=== PATIENT | female | born 1945 | race Caucasian/White ===

== ENCOUNTER 2017-12-06 01:29 | Observation (INO) | payer MEDICARE, OTHER ==
--- NOTE | 2017-12-02 18:42 | HISTORY AND PHYSICAL ---
DATE OF ADMISSION: December 06, 2017 IDENTIFICATION AND CHIEF COMPLAINT Francia is a 72-year-old woman with the chief complaint of left knee pain. HISTORY OF PRESENT ILLNESS The patient has a longstanding history of knee arthritis, progressively painful and debilitating, refractory to conservative care. Surgery is indicated to relieve symptoms failure of nonoperative measures. PAST MEDICAL HISTORY 1. Most notable for metastatic cancer, currently controlled with medication. 2. Hypertension, controlled on medication. ALLERGIES She has no known drug allergies. CURRENT MEDICATIONS 1. Amlodipine 10 mg p.o. q. day. 2. Letrozole 2.5 mg p.o. q. day. 3. Gabapentin 100 mg two tabs b.i.d. 4. Various vitamins. PAST SURGICAL HISTORY 1. Contralateral knee replacement. 2. Rotator cuff surgery. 3. Carpal tunnel release. 4. Bunion operation. FAMILY HISTORY Notable for mother and sister with cancer. SOCIAL HISTORY Negative for tobacco and alcohol use. REVIEW OF SYSTEMS Negative. PHYSICAL EXAMINATION GENERAL: This is a well-developed, well-nourished female who appears stated age. HEENT: Normocephalic, atraumatic. NECK: Supple. LUNGS: Clear. HEART: Regular. ABDOMEN: Soft. ORTHOPEDIC: Left knee has a valgus deformity. This is passively correctable. She has an effusion present. Extensor function is intact. The knee is grossly stable. The MCL is competent. Calves nontender. Neurovascular function intact distally. Radiographs demonstrate end-stage DJD, most severely affecting the lateral compartment. ASSESSMENT Left knee end-stage degenerative joint disease, refractory to conservative care. PLAN Per patient request, we are going to proceed with total knee replacement. The nature of the procedure, risks, benefits, and anticipated rehab course reviewed. Signed consent is in the chart. The risks of the procedure include, but are not limited to , major medical or anesthetic complication, infection, neurovascular injury, blood transfusion, stiffness, scarring, fracture, tendon rupture, instability, implant loosening and migration, failure , persistent or recurrent pain, need for additional surgery, and other unforeseen. She understands and wishes to proceed. Signed permit was placed in the chart. No guarantee was given or implied. ESVIN
[2017-12-05 14:37] LABS: PLATELET COUNT, AUTOMATED 585 K/uL (150-450)
[2017-12-05 14:45] LABS: INR 1.01
[~2017-12-06] VITALS: Ht 144.8 cm; Wt 53.3 kg
[2017-12-06] VITALS (14 sets, daily range): BP systolic 119–157; BP diastolic 71–113
[~2017-12-06 01:29] MED LIST: ACE325 PO; AMLO-98 PO; CEFZIL; CYCL10TA29 PO; CYCL1DRO6 OP; ENO40I SQ; HYDR-2966 PO; LETPT PO; LOR10/325 PO; LOR5/325 PO; LORA-1456 PO; MECL12.5 PO; ONDA4TAB PO; PROC10TA4 PO; SIMV-44 PO
[2017-12-06] MEDS ORDERED: fentaNYL CITR 100 MCG/2 ML AMP ONE ×3 (09:52→14:24)
[2017-12-06] MEDS ORDERED: PROPOFOL EMUL(*) 10MG/ML 20 ML 20 ML ONE ×4 (09:53→12:45)
[2017-12-06] MEDS ORDERED: ONDANSETRON 4 MG/2 ML VIAL ONE (09:53)
[2017-12-06] MEDS ORDERED: LIDOCAINE MPF 1% 5 ML VIAL ONE (09:53)
[2017-12-06] MEDS ORDERED: DEXAMETHASONE SOD 4 MG/ML VIAL ONE (09:53)
[2017-12-06] MEDS ORDERED: LIDOCAINE/SOD BICARB 8.4% SYR ID ONE (10:45)
[2017-12-06] MEDS ORDERED: TRANEXAMIC AC 1000 MG/10ML SDV 1,000 MG in DEXTROSE 5% 50 ML BAG 50 ML IV ONE (10:45)
[2017-12-06] MEDS ORDERED: ceFAZolin(*) 1 GM VIAL 1 GM in NS(*) 0.9% 100 ML ADDVANT BAG 100 ML IVPB ONE (10:45)
[2017-12-06] MEDS ORDERED: cloNIDine EPIDUR INJ 100MCG/ML 40 MCG, ROPIVACAINE 0.5% 20 ML VIAL 25 ML, EPINEPHrine H... INJ ONE (10:45)
[2017-12-06] MEDS ORDERED: MIDAZOLAM 2 MG/2 ML VIAL IVP ONE (10:45)
[2017-12-06] MEDS ORDERED: NORMOSOL R SOLN(*) 1000 ML BAG 1,000 ML IV PRN ×2 (10:45→13:50)
[2017-12-06] MEDS ORDERED: FAMOTIDINE 20 MG TAB PO ONE (10:45)
[2017-12-06] MEDS ORDERED: HALOPERIDOL LACT 5 MG/ML VIAL IM ONE (11:17)
[2017-12-06] MEDS ORDERED: ROCURONIUM BROM 10 MG/ML 5 ML ONE (11:30)
[2017-12-06] MEDS ORDERED: ACETAMINOPHEN(*)1000 MG/100 ML 100 ML IVPB ONE (11:59)
[2017-12-06] MEDS ORDERED: SUGAMMADEX SOD 200 MG/2 ML SDV ONE (12:15)
[2017-12-06] MEDS ORDERED: APAP/HYDROCODONE 325/7.5 TAB PO PRN (13:50)
[2017-12-06] MEDS ORDERED: PROMETHAZINE 25 MG/ML 1 ML AMP IVP PRN (13:50)
[2017-12-06] MEDS ORDERED: diphenhydrAMINE 25 MG CAP PO PRN (13:50)
[2017-12-06] MEDS ORDERED: FLUSH 10 ML SYR IVP PRN (13:50)
[2017-12-06] MEDS ORDERED: ZOLPIDEM TARTRATE 5 MG TAB PO PRN (13:50)
[2017-12-06] MEDS ORDERED: BENZOCAINE/MENTHOL 1 EACH LOZG PO PRN (13:50)
[2017-12-06] MEDS ORDERED: BISACODYL 10 MG SUPP PR PRN (13:50)
[2017-12-06] MEDS ORDERED: diphenhydrAMINE 50 MG/ML VIAL IVP PRN (13:50)
[2017-12-06] MEDS ORDERED: MAGNESIUM HYDROXIDE* 30ML UDCP PO PRN (13:50)
[2017-12-06] MEDS ORDERED: MEPERIDINE 50 MG/ML SYR ONE (13:53)
--- NOTE | 2017-12-06 14:17 | RADIOLOGY IMAGING REPORT ---
FACILITY: [facility] PATIENT NAME: Analia Barbour : 1945 MR: [id number] V: [id number] EXAM DATE: ORDERING PHYSICIAN: CHULA GARCIAS TECHNOLOGIST: Location: [facility] - [place] Patient: Analia Barbour : 1945 Visit/Account:[id number] Date of Sevice: 12/06/2017 EXAMINATION: Left knee radiographs 3 views HISTORY: Postoperative COMPARISON: None. FINDINGS: 2 views obtained. Bones: No fracture or osseous destruction. Joint spaces: Total knee arthroplasty in near anatomic alignment.Postoperative change along the post erior patella. There is a lucent area within the distal femur seen on the lateral view with linear ma rgins which appears to be postoperative or may alternatively be a part of the prosthesis. In the wendie on of this lucency on the lateral view there is an apparent 1.3 cm discontinuous bony fragment which is not seen on the frontal view. Alignment: Normal. Soft tissues: Skin staple line and postoperative soft tissue gas noted. Postoperative gas noted in t he knee joint space. Effusion: None. IMPRESSION: Total knee arthroplasty in near-anatomic alignment. Lucency with linear morphology in the distal femur on lateral view which appears to represent either a postsurgical defect or a lucent component of the arthroplasty. There is an apparent 1.3 cm disconti nuous bony fragment in the region of this lucency seen on the lateral view only in keeping with a fra cture fragment or displaced osseous fragment related to potential osteotomy. CT could be utilized for further evaluation as needed. Report Dictated By: Fred Greenfield MD at 12/06/2017 2:00 PM Report E-Signed By: Fred Greenfield MD at 12/06/2017 2:12 PM WSN:[id number]
[2017-12-06] MEDS: CELECOXIB 200 MG CAP PO SCH (16:54)
--- NOTE | 2017-12-06 17:00 | Hospitalist Consultation ---
History of Present Illness Requesting Physician Chula Garcias MD Reason for Consult Post-op medical management Chief Complaint L-knee pain History of Present Illness Mrs. Barbour is a 72-year-old woman with PMH of HTN, Leukemia/Bone Marrow Cancer and she takes Femara 2.5mg po qhs. The patient also has a longstanding history of knee arthritis, progressively painful and debilitating, refractory to conservative care. Surgery is indicated to relieve symptoms failure of nonoperative measures. Her past surgeries are R- knee replacement, Rotator cuff surgery, Carpal tunnel release, Bunion operation. I was asked by Dr Garcias to evaluate this patient for her medical management during her hospital stay. Post- op she complaints of left knee pain. History Home Meds Reported Medications Prochlorperazine Maleate (Compazine) 10 Mg Tablet, 1 TAB PO PRN 11/30/17 Ondansetron (ZOFRAN ODT) 4 Mg Tab.rapdis, 8 MG PO PRN, TAB.MARAL 11/30/17 Meclizine Hcl (MECLIZINE HCL) 12.5 Mg Tablet, 12.5 MG PO PRN Y for DIZZINESS 11/30/17 Letrozole (FEMARA) 2.5 Mg Tab, 2.5 MG PO HS, TAB 11/30/17 Hydrochlorothiazide (HYDROCHLOROTHIAZIDE) 25 Mg Tablet, 0.5 TAB PO PRN, TAB 11/30/17 Cyclosporine (RESTASIS) 1 Each Droperette, 1 EACH OP QDAY 11/30/17 Cyclobenzaprine Hcl (CYCLOBENZAPRINE HCL) 10 Mg Tablet, 5 MG PO PRN, #9 TAB 11/30/17 Acetaminophen (Tylenol) 325 Mg Tab, 650 MG PO Q4-6H, 0 Refills TAKE NEEDED FOR PAIN 01/07/10 Amlodipine Besylate (Amlodipine Besylate) 10 Mg Tablet, 10 MG PO HS, 0 Refills 01/07/10 Discontinued Reported Medications Lorazepam (ATIVAN) 1 Mg Tablet, 1 MG PO PRN 11/30/17 Acetaminophen/Hydrocodone (Lortab 5/325 Mg) 5 Mg/325 Mg Tab, 2 TAB PO Q4-6H, 0 Refills TAKE NEEDED FOR PAIN 01/07/10 Enoxaparin Sodium (Lovenox) 40 Mg/0.4 Ml Syr, 40 MG SQ QDAY for 14 Days, 0 Refills 01/07/10 Simvastatin (Zocor) 40 Mg Tablet, 40 MG PO QHS, 0 Refills 12/29/09 Allergies: Coded Allergies: dexamethasone (Verified Allergy, Intermediate, MENTAL STATUS CHANGES, 11/30) Patient History: Angina FATHER FH: cancer MOTHER BROTHER OR SISTER Hx Smoking: No Smoking Status: Never Smoker Caffeine Intake: Coffee Caffeine/Cups Per Day: 2 cups Hx Alcohol Use: No Hx Substance Use Disorder: No History of IV Drug Use: No Review of Systems Constitutional: No Fever, No Weight Loss, No Weight Gain, No Chills Neurological: No Confusion, No Weakness, No Dizziness Cardiovascular: No Chest Pain, No Palpitations Respiratory: No Shortness of Breath, No Cough, No Wheezing Gastrointestinal: No Nausea, No Vomiting, No Diarrhea, No Constipation, No Abdominal Pain Genitourinary: No Dysuria, No Hematuria Musculoskeletal: Pain, Impaired Mobility, No Sprain, No Strain Psychiatric: No Depression, No Anxiety Exam Vital Signs Vital Signs Date Time Temp Pulse Resp B/P (MAP) Pulse Ox O2 Delivery O2 Flow Rate FiO2 12/06/17 15:23 92 Nasal Cannula 2.0 12/06/17 15:23 98.2 78 12 139/74 (95) General Appearance: Alert, Awake, No Acute Distress, Afebrile Neuro: No Gross deficits Eyes: PERRLA Cardiovascular: Normal Rhythm & Peripheral Pulses Respiratory: No Respiratory Distress, Clear to Auscultation GI: Abd Soft and Non-Tender Extremities: Soft and Non Tender, Edema (tender L-knee) Psych: Alert & Oriented X3, Appropriate Mood & Affect Medical Decision Making Data Points Result Diagram: 12/05/17 9453 Assessment and Plan Problems: (1) Total knee replacement status Status: Acute Assessment & Plan: She is currently on Aspirin 325mg po qd for DVT prophylaxis. ROM, PT and other management as per surgery (2) Leukemia Status: Chronic Assessment & Plan: I will start her on Femara 2.5mg po at hs, She will bring her own meds (3) Hypertension Status: Chronic Assessment & Plan: I will start her on Amlodipine 10mg po q hs and hold if SBP < 100 Condition stable Time Spent on Plan of Care: < 30 min Copies to: CHULA GARCIAS MD Venous Thromboembolism VTE Risk Physician Assess for VTE Risk: Yes Patient's VTE Risk: Low VTE Diagnostic Test 2 Days Prior to Admit: No Antithrombotics Is Pt On Any Antithrombotics?: No Exam Sepsis Risk: No Definite Risk Problem Qualifiers (1) Total knee replacement status: Laterality: left Qualified Codes: Z96.652 - Presence of left artificial knee joint (2) Hypertension: Hypertension type: essential hypertension Qualified Codes: I10 - Essential ( primary) hypertension GILES SANCHEZ MD Dec 06, 2017 17:00
[2017-12-06] MEDS: LETROZOLE 2.5 MG TAB PO SCH (19:43)
[2017-12-06] MEDS: amLODIPine BESYL(*) 5 MG TAB PO SCH (19:47)
[2017-12-06] MEDS: ceFAZolin(*) 1 GM VIAL 1 GM in NS(*) 0.9% 100 ML ADDVANT BAG 100 ML IVPB SCH (19:48)
[2017-12-06] MEDS: ACETAMINOPHEN 325 MG TAB PO PRN (20:57)
[2017-12-06] MEDS ORDERED: PATIENT'S OWN MED PO SCH (21:00)
--- NOTE | 2017-12-06 22:06 | OPERATIVE REPORT 1 ---
EVENT DATE: December 06, 2017 SURGEON: Saw Soliz MD ANESTHESIOLOGIST: Oneil Watson MD ANESTHESIA: General. HAND MEAT SALTER: Homero Munoz PA-C PREOPERATIVE DIAGNOSIS Left knee degenerative joint disease. POSTOPERATIVE DIAGNOSIS Left knee degenerative joint disease. PROCEDURE PERFORMED Left total knee arthroplasty. ESTIMATED BLOOD LOSS Minimal. DRAINS None. SPECIMENS None. COMPLICATIONS None apparent. TOURNIQUET TIME 46 minutes IMPLANTS USED [employer] Triathlon knee system with 2 left PS femur, 2 standard tibial baseplate , 29 mm universal cemented, all-polyethylene patellar button, and a 9 mm PS tibial tray liner. INDICATIONS Francia has intractable pain and disability related to end-stage knee arthritis. Surgery is indicated to relieve symptoms after failure of nonoperative measures. DESCRIPTION OF PROCEDURE The patient was taken to the operating room and placed supine on the operating table. General anesthesia was induced after a failed spinal. Antibiotics and TXA were administered IV. The left lower extremity was prepped and draped in the usual sterile fashion for knee arthroplasty. The limb was exsanguinated with an Esmarch bandage. The tourniquet was inflated to 250 mmHg. A midline longitudinal incision was made and carried down through the skin and subcutaneous tissue to the extensor mechanism. Full-thickness flaps were developed far enough medially to allow medial parapatellar arthrotomy be performed. The patella was everted, and the knee was put into the flexed position. The fat pad, anterior horn, the menisci, and the cruciate ligaments were debrided. A subperiosteal capsule release was performed 1 cm circumferentially around the upper tibial plateau to balance the knee. A step drill was used to enter the distal femur. A 10 cm alignment guide was used to engage the isthmus. The cut was set for 6 degrees of valgus. A 10 mm resection block was applied. Distal femoral cuts were made with an oscillating saw. AP sizing guide was applied. This was positioned parallel to the transepicondylar axis as she does have some lateral hypoplasia of the condyle. The size 2 was optimal without risk of notching. The four-in-one cutting block was applied. Anterior, posterior, posterior chamfer, and anterior chamfer cuts were made respectively. The PS block was applied and centered. Medial and lateral bone was removed through the blocks. The trial femur had nice line-to- line fit. Attention was turned to tibial preparation. The extramedullary guide was applied and positioned for varus, valgus, posterior slope, and rotation. The knee block was set to take 2 mm from the relatively deficit lateral tibial plateau. The block was pinned, extramedullary alignment check was made, and the cuts were made with an oscillating saw. After osteophyte removal, gaps were balanced and symmetric with no additional formal releases required. A size 2 tibial baseplate provided good coverage. This was inserted along with a trial liner and the trial femur. The knee was brought to full extension. The patella was taken from a starting thickness of 19 mm to a residual of 13 to 14 with a patellar clamp and oscillating saw. The 29 provided optimal bony coverage without soft tissue overhang. Lug holes were drilled, and the patella tracked nicely with the no-touch technique. Final tibial preparation consisted of assuring appropriate rotational and translational position of the component. The boss was reamed. The fin was punched. The surfaces were copiously lavaged. The components were cemented in a single stage. Once the cement had fully polymerized, the tourniquet was deflated. Hemostasis was assured. The wound was copiously lavaged. The 9 PS tibial tray liner filled up the gap ideally. This was inserted and locked into the baseplate. The joint was reduced. The arthrotomy was closed in flexion with #2 Ethibond, the subcutaneous tissue with 3-0 Vicryl, and the skin with surgical carol. Xeroform and 4 x 4's applied as a dry, sterile dressing and a compression wrap. The patient was awakened from anesthesia and taken to recovery in stable condition having tolerated the procedure well. PLAN The plan is for standard TKA rehab protocol. [facility]
[2017-12-07 03:42] VITALS: BP 146/87
[2017-12-07] MEDS: ACETAMINOPHEN 325 MG TAB PO PRN ×3 (03:51→20:22)
[2017-12-07] MEDS: ceFAZolin(*) 1 GM VIAL 1 GM in NS(*) 0.9% 100 ML ADDVANT BAG 100 ML IVPB SCH ×2 (03:52→11:32)
[2017-12-07] MEDS: DIAZEPAM 5 MG TAB PO PRN ×2 (04:45→20:21)
[2017-12-07 05:39] LABS: PLATELET COUNT, AUTOMATED 453 K/uL (150-450)
[2017-12-07] MEDS: CELECOXIB 200 MG CAP PO SCH ×2 (08:30→16:30)
[2017-12-07] MEDS: FERROUS SULFATE 325 MG TAB PO SCH ×2 (08:30→16:30)
[2017-12-07] MEDS: ASPIRIN 325 MG TAB PO SCH (08:30)
[2017-12-07 08:33] VITALS: BP 140/78
--- NOTE | 2017-12-07 10:06 | Hospitalist Progress Note ---
Subjective Progress Notes Subjective Mrs. Barbour is a 72-year-old woman with PMH of HTN, Leukemia/Bone Marrow Cancer and she takes Femara 2.5mg po qhs. The patient also has a longstanding history of knee arthritis, progressively painful and debilitating, refractory to conservative care. Surgery is indicated to relieve symptoms failure of nonoperative measures. Her past surgeries are R- knee replacement, Rotator cuff surgery, Carpal tunnel release, Bunion operation. I was asked by Dr Garcias to evaluate this patient for her medical management during her hospital stay. Post- op she complaints of left knee pain. 12/07: She is afebrile and hemodynamically stable and without complaint. Her Hb has dropped some to 8.9gm. Patient Complains of: Neurological: No: Confusion, Weakness, Dizziness Cardiovascular: No: Chest Pain, Palpitations Respiratory: No: Cough, Congestion, Shortness of Breath Gastrointestinal: No Nausea, No Vomiting Genitourinary: No Dysuria, No Hematuria Musculoskeletal: Pain, Impaired Mobility, No: Sprain, Strain Physical Exam Vital Signs Date Time Temp Pulse Resp B/P (MAP) Pulse Ox O2 Delivery O2 Flow Rate FiO2 12/07/17 08:33 98.4 18 140/78 (98) 97 Nasal Cannula 1.0 12/07/17 03:42 81 General Appearance: Alert, Awake, No Acute Distress, Afebrile Neuro: No Gross deficits Eyes: PERRLA ENT: Normal Cardiovascular: No Edema, No JVD Respiratory: No Respiratory Distress GI: Soft and Non-Tender Extremities: Soft and Non Tender (Tender L-knee) Psych: Alert & Oriented X3, Appropriate Mood & Affect Result Diagram: 12/07/1752612/07/17526 Assessment and Plan Problems: (1) Total knee replacement status Status: Acute Assessment & Plan: She is currently on Aspirin 325mg po qd for DVT prophylaxis. ROM, PT and other management as per surgery 12/07: Management as per surgery (2) Leukemia Status: Chronic Assessment & Plan: I will start her on Femara 2.5mg po at hs, She will bring her own meds 12/07: Her Hb is 8.9 and her MCV and MCH are low. I will start her on FeSO4 325mg po bid and continue her other meds. (3) Hypertension Status: Chronic Assessment & Plan: I will start her on Amlodipine 10mg po q hs and hold if SBP < 100 12/07: BP is 146/87 with mild pain. I will continue her current meds. If her BP remains elevated I would change her Amlodipine to Nifedipine XL 30mg po qd Condition stable Time Spent on Plan of Care: < 30 min Copies to: CHULA GARCIAS MD Exam Sepsis Risk: No Definite Risk Problem Qualifiers (1) Total knee replacement status: Laterality: left Qualified Codes: Z96.652 - Presence of left artificial knee joint (2) Hypertension: Hypertension type: essential hypertension Qualified Codes: I10 - Essential ( primary) hypertension GILES SANCHEZ MD Dec 07, 2017 10:06
[2017-12-07 10:56] VITALS: BP 151/76
[2017-12-07 13:00] VITALS: Ht 144.8 cm; Wt 53.3 kg
[2017-12-07 15:06] VITALS: BP 150/80
[2017-12-07 20:00] VITALS: BP 153/78
[2017-12-07] MEDS: amLODIPine BESYL(*) 5 MG TAB PO SCH (20:21)
[2017-12-07] MEDS: LETROZOLE 2.5 MG TAB PO SCH (20:23)
[2017-12-07 23:25] VITALS: BP 162/81
[2017-12-08 03:00] VITALS: BP 149/81
[2017-12-08 05:51] LABS: PLATELET COUNT, AUTOMATED 436 K/uL (150-450)
[2017-12-08 07:43] VITALS: BP 136/80
[2017-12-08] MEDS: ASPIRIN 325 MG TAB PO SCH (08:13)
[2017-12-08] MEDS: FERROUS SULFATE 325 MG TAB PO SCH ×2 (08:14→17:24)
[2017-12-08] MEDS: CELECOXIB 200 MG CAP PO SCH ×2 (08:14→17:24)
--- NOTE | 2017-12-08 10:18 | Hospitalist Progress Note ---
Subjective Progress Notes Subjective She has no complaints this morning. Patient Complains of: Cardiovascular: No: Chest Pain Respiratory: No: Shortness of Breath Physical Exam Vital Signs Date Time Temp Pulse Resp B/P (MAP) Pulse Ox O2 Delivery O2 Flow Rate FiO2 12/08/17 07:43 98.8 85 16 136/80 (98) 96 Room Air 12/07/17 10:56 1.0 Intake and Output 12/09/17 07:00 # Voids 1 # Bowel Movements 1 General Appearance: Alert, Awake, No Acute Distress, Afebrile Cardiovascular: Regular Rate and Rhythm Respiratory: No Respiratory Distress, Clear to Auscultation Psych: Alert & Oriented X3, Appropriate Mood & Affect Result Diagram: 12/08/17 0512/07/17526 Assessment and Plan Problems: (1) Total knee replacement status Status: Acute Assessment & Plan: She is currently on Aspirin 325mg daily for DVT prophylaxis. ROM, PT and other management as per surgery. (2) Leukemia Status: Chronic Assessment & Plan: She is on chronic treatment with Femara. She will use her own medications. She was started on Ferrous Sulfate secondary to low Hgb. Hgb today is 9.4. CBC to be rechecked tomorrow. (3) Hypertension Status: Chronic Assessment & Plan: She is on chronic treatment with Amlodipine. This will be started with hold parameters. Exam Sepsis Risk: No Definite Risk Problem Qualifiers (1) Total knee replacement status: Laterality: left Qualified Codes: Z96.652 - Presence of left artificial knee joint (2) Hypertension: Hypertension type: essential hypertension Qualified Codes: I10 - Essential ( primary) hypertension DILLON HERNANDEZ WIRE SPOOLER Dec 08, 2017 10:18
[2017-12-08 11:24] VITALS: BP 160/88
[2017-12-08 15:34] VITALS: BP 148/84
[2017-12-08 19:25] VITALS: BP 133/70
[2017-12-08] MEDS: ACETAMINOPHEN 325 MG TAB PO PRN (20:47)
[2017-12-08] MEDS: DIAZEPAM 5 MG TAB PO PRN (20:47)
[2017-12-08 20:49] VITALS: BP 147/95
[2017-12-08] MEDS: amLODIPine BESYL(*) 5 MG TAB PO SCH (20:50)
[2017-12-08] MEDS: LETROZOLE 2.5 MG TAB PO SCH (20:50)
[2017-12-09 01:05] VITALS: BP 143/64
[2017-12-09 05:40] LABS: PLATELET COUNT, AUTOMATED 422 K/uL (150-450)
[2017-12-09 05:58] VITALS: BP 148/80
[2017-12-09 07:41] VITALS: BP 124/86
[2017-12-09] MEDS: FERROUS SULFATE 325 MG TAB PO SCH (08:55)
[2017-12-09] MEDS: ASPIRIN 325 MG TAB PO SCH (08:55)
[2017-12-09] MEDS: CELECOXIB 200 MG CAP PO SCH (08:55)
[2017-12-09] MEDS: ACETAMINOPHEN 325 MG TAB PO PRN (09:13)
[2017-12-09] MEDS ORDERED: HYDR-4308 PO (09:35)
[2017-12-09] MEDS ORDERED: ASPI-764 PO (09:35)
[2017-12-09] MEDS ORDERED: DIA5 PO (09:42)
[2017-12-09] MEDS ORDERED: FERR-53 PO (12:28)
--- NOTE | 2017-12-09 13:06 | Hospitalist Progress Note ---
Subjective Progress Notes Subjective Mrs. Barbour is a 72-year-old woman with PMH of HTN, Leukemia/Bone Marrow Cancer and she takes Femara 2.5mg po qhs. The patient also has a longstanding history of knee arthritis, progressively painful and debilitating, refractory to conservative care. Surgery is indicated to relieve symptoms failure of nonoperative measures. Her past surgeries are R- knee replacement, Rotator cuff surgery, Carpal tunnel release, Bunion operation. I was asked by Dr Garcias to evaluate this patient for her medical management during her hospital stay. Post- op she complaints of left knee pain. 12/07: She is afebrile and hemodynamically stable and without complaint. Her Hb has dropped some to 8.9gm. 12/09: She is afebrile and hemodynamically stable without any complaint. She is being d /c'd home today and I will send her on FeSO4 325mg po bid for her anemia Patient Complains of: Neurological: No: Confusion, Weakness, Dizziness Cardiovascular: No: Chest Pain, Palpitations Respiratory: No: Cough, Congestion, Shortness of Breath Gastrointestinal: No Nausea, No Vomiting Genitourinary: No Dysuria, No Hematuria Musculoskeletal: Pain, Impaired Mobility, No: Sprain, Strain Physical Exam Vital Signs Date Time Temp Pulse Resp B/P (MAP) Pulse Ox O2 Delivery O2 Flow Rate FiO2 12/09/17 07:45 92 12/09/17 07:45 Room Air 12/09/17 07:41 98.0 92 12 124/86 (99) 12/07/17 10:56 1.0 Intake and Output 12/10/17 07:00 Intake Total 360 ml Balance 360 ml Intake Oral 360 ml # Voids 1 General Appearance: Alert, Awake, No Acute Distress, Afebrile Neuro: No Gross deficits Eyes: PERRLA Cardiovascular: Regular Rate and Rhythm, No Edema Respiratory: No Respiratory Distress GI: Soft and Non-Tender Extremities: Soft and Non Tender (tender L-knee) Psych: Alert & Oriented X3, Appropriate Mood & Affect Result Diagram: 12/09/17 0521 12/07/17 05 Assessment and Plan Problems: (1) Total knee replacement status Status: Acute Assessment & Plan: She is currently on Aspirin 325mg daily for DVT prophylaxis. ROM, PT and other management as per surgery. 12/09: She will be d/c'd on Aspirin 325mg po qd. She will be d/c on FeSO4 325mg po bid for her anemia She will follow Dr. Garcias. (2) Leukemia Status: Chronic Assessment & Plan: She is on chronic treatment with Femara. She will use her own medications. She was started on Ferrous Sulfate secondary to low Hgb. Hgb today is 9.4. CBC to be rechecked tomorrow. 12/09: Her Hb is 9.0 and she will be d/c on FeSO4 325mg po bid (3) Hypertension Status: Chronic Assessment & Plan: She is on chronic treatment with Amlodipine. This will be started with hold parameters. Condition stable Time Spent on Plan of Care: < 30 min Copies to: CHULA GARCIAS MD Exam Sepsis Risk: No Definite Risk Problem Qualifiers (1) Total knee replacement status: Laterality: left Qualified Codes: Z96.652 - Presence of left artificial knee joint (2) Hypertension: Hypertension type: essential hypertension Qualified Codes: I10 - Essential ( primary) hypertension GILES SANCHEZ MD Dec 09, 2017 13:06
--- NOTE | 2017-12-20 15:17 | DISCHARGE SUMMARY ---
REASON FOR ADMISSION Patient with painful knee arthritis, admitted for knee replacement. HOSPITAL COURSE Patient taken to the operating room on the day of admission and undergoes uncomplicated left total knee arthroplasty. Postoperatively she is maintained on IV antibiotics for 24 hours. She has DVT prophylaxis with aspirin and ABIs. She is mobilized by Therapy and makes good progress. At the time of discharge her wound condition is benign. She is comfortable on p.o. pain medication. She is voiding and stooling normally. DISPOSITION Discharged home. FOLLOWUP With Dr. Soliz in one week. DISCHARGE MEDICATIONS 1. Include preop home meds at the usual dose. 2. Aspirin 325 p.o. q.day times one month. 3. Hydrocodone for pain. DIET Ad david. CONDITION ON DISCHARGE Stable. DISCHARGE INSTRUCTIONS CPM four hours a day. Increase motion as tolerated. Daily dry sterile dressing change. Okay to shower, no submersion of the wound. Call immediately for fever, chills, wound problems, uncontrolled pain or other concerns. ESVIN
== END 2017-12-09 09:47 | disposition home or self-care (01) ==
LOC: OR 01:29 → MED 15:15
PROVIDERS: ADMIT Orthopaedic Surgery; ATTEND Orthopaedic Surgery
DX: M17.12 Unilateral primary osteoarthritis, left knee (principal); Z79.899 Other long term (current) drug therapy; I12.9 Hypertensive chronic kidney disease with stage 1 through stage 4 chronic kidney disease, or unspecified chronic kidney disease; N18.9 Chronic kidney disease, unspecified
CPT/HCPCS: 27447; 36415; 73560; 85025; 85610; 86850; 86900; 86901; 97116; 97161; 97530; A9270; C1713; C1776; G0378; J0131; J0171; J0690; J0735; J1630; J1885; J2001; J2175; J2250; J2405; J2704; J2795; J3010; J7050; J7060; 82310; 82374; 82435; 82565; 82947; 84132; 84295; 84520; J1100

== ENCOUNTER 2018-02-15 00:53 | Inpatient (IN) | payer MEDICARE, OTHER ==
[~2018-02-15] VITALS: Ht 137.2 cm; Wt 53.3 kg
[2018-02-15] VITALS (10 sets, daily range): BP systolic 86–154; BP diastolic 58–91
[~2018-02-15 00:53] MED LIST changes: +ASPI-764 PO; +DIA5 PO; +FERR-53 PO; +HYDR-4308 PO
[2018-02-15] MEDS ORDERED: ceFAZolin(*) 2GM/D5W 50ML 50 ML IVPB ONE (06:00)
[2018-02-15] MEDS ORDERED: LIDOCAINE/SOD BICARB 8.4% SYR ID ONE (06:00)
[2018-02-15] MEDS ORDERED: MIDAZOLAM 2 MG/2 ML VIAL IVP PRN ×2 (06:00→10:45)
[2018-02-15] MEDS ORDERED: NORMOSOL R SOLN(*) 1000 ML BAG 1,000 ML IV PRN (06:00)
[2018-02-15] MEDS ORDERED: PREGABALIN 75 MG CAPSULE PO ONE (06:00)
[2018-02-15] MEDS ORDERED: ACETAMINOPHEN 500 MG TAB PO ONE (06:00)
[2018-02-15] MEDS ORDERED: CELECOXIB 200 MG CAP PO ONE (06:00)
[2018-02-15] MEDS ORDERED: FAMOTIDINE 20 MG TAB PO ONE (06:00)
[2018-02-15] MEDS ORDERED: PROPOFOL EMUL(*) 10MG/ML 20 ML 20 ML ONE (07:54)
[2018-02-15] MEDS ORDERED: DEXAMETHASONE SOD PHOS 10MG/ML ONE (07:54)
[2018-02-15] MEDS ORDERED: ONDANSETRON 4 MG/2 ML VIAL ONE (07:54)
[2018-02-15] MEDS ORDERED: MIDAZOLAM 2 MG/2 ML VIAL ONE (07:54)
[2018-02-15] MEDS ORDERED: fentaNYL CITR 100 MCG/2 ML AMP ONE ×3 (07:54→14:04)
[2018-02-15] MEDS ORDERED: ROCURONIUM BROM 10 MG/ML 10 ML ONE (07:54)
[2018-02-15] MEDS ORDERED: LIDOCAINE MPF 1% 5 ML VIAL ONE (07:54)
[2018-02-15] MEDS ORDERED: PROPOFOL EMUL(*) 10MG/ML 20 ML 60 ML ONE ×2 (09:27→11:30)
[2018-02-15] MEDS ORDERED: SUGAMMADEX SOD 500 MG/5 ML SDV ONE ×2 (13:01→14:48)
[2018-02-15] MEDS ORDERED: BENZOCAINE/MENTHOL 1 EACH LOZG PO PRN (13:25)
[2018-02-15] MEDS ORDERED: MAGNESIUM HYDROXIDE* 30ML UDCP PO PRN (13:25)
[2018-02-15] MEDS ORDERED: HYDROmorphone HCL 2 MG/ML SDV IVP PRN (13:25)
[2018-02-15] MEDS ORDERED: ACETAMINOPHEN(*)1000 MG/100 ML 100 ML IVPB PRN (13:25)
[2018-02-15] MEDS ORDERED: LR(*) 1000 ML BAG 1,000 ML IV PRN (13:25)
[2018-02-15] MEDS ORDERED: BISACODYL 10 MG SUPP PR PRN (13:25)
[2018-02-15] MEDS ORDERED: diphenhydrAMINE 25 MG CAP PO PRN (13:25)
[2018-02-15] MEDS ORDERED: FLUSH 10 ML SYR IVP PRN (13:25)
[2018-02-15] MEDS ORDERED: oxyCODONE HCL 5 MG CAP PO PRN (13:25)
[2018-02-15] MEDS ORDERED: MEPERIDINE 50 MG/ML SYR ONE (13:53)
--- NOTE | 2018-02-15 14:59 | OPERATIVE REPORT 1 ---
EVENT DATE: February 15, 2018 SURGEON: Orlando Gomez MD ANESTHESIOLOGIST: Wallace Swartz MD ANESTHESIA: General endotracheal. CHEMIST INTERNSHIP: Homero Munoz PA-C PREOPERATIVE DIAGNOSIS Lumbar spinal stenosis with L3-L4 disk herniation. POSTOPERATIVE DIAGNOSIS Lumbar spinal stenosis with L3-L4 disk herniation. PROCEDURE PERFORMED L3 to L5 laminectomy. IV FLUIDS 1900 mL. ESTIMATED BLOOD LOSS 125 mL. IMPLANTS None. SPECIMENS None. DRAINS None. COMPLICATIONS None. DISPOSITION Post anesthesia care unit. INDICATION FOR SURGERY Ms. Barbour is a 72-year-old female who presented to my clinic with a complaint of right greater than left radiating pain, numbness and tingling. This was accompanied by lower extremity weakness and heaviness with any attempts at prolonged ambulation. She had tried injections, medications, physical therapy, and activity modifications with no significant improvement. Her physical examination was significant for positive for straight leg raising maneuver on the right with symptoms radiating primarily in L4 distribution with that maneuver. Her imaging studies were significant for multilevel degenerative disk disease with severe spinal stenosis at L3-L4 and L4-L5 and moderate stenosis at L2-L3. There was also an inferiorly extruded right paracentral disk herniation sitting behind the L4 vertebral body. There was significant contact and compression of the neural elements noted. Secondary to ongoing symptoms and failure to improve with nonsurgical treatment, Ms. Barbour was offered and elected to undergo lumbar laminectomy. Prior to surgery, I explained in detail to the patient the possible risks of surgery. This included bleeding, infection, damage to the surrounding structures, nerve root damage, spinal fluid leak, meningitis, persistent and/ or worsening pain, , blindness, sexual dysfunction, autonomic nervous system dysfunction and other unforeseen medical and surgical complications. An understanding that spinal surgery is more effective at eliminating extremity discomfort than axial spine pain was stressed. DESCRIPTION OF PROCEDURE On the date of surgery, the patient was admitted to the preoperative hold area, and all questions were answered. The operative site was identified and marked by myself. The patient was brought in good condition to the operating room, and after succumbing to anesthesia, was placed in the prone position on a Aleksandar table. All bony protuberances and soft tissues were well padded in the standard fashion. Care was taken to maintain appropriate perfusion pressures during anesthesia. Preoperative antibiotics were administered according to the appropriate timing schedule. At the conclusion of the procedure, sponge and needle count were correct x two. Final time out was undertaken by members of the operating team. This confirmed correct patient, correct levels and correct surgery. The patient was then prepped and draped in the standard sterile orthopedic fashion, and an incision was made over the intended surgical levels. Sharp dissection was carried out down to the posterior elements. Soft tissues were elevated off the posterior elements in a subperiosteal manner. A lateral radiograph was obtained to confirm correct spinal levels. A Leksell rongeur and a [employer] bone cutter were used to remove the L3, the L4, and the bottom half of the L2 spinous processes. The lamina was then thinned down the midline with a high speed louise. The canal was entered by using a Kemp curette to undermine the inferior insertion of the ligamentum flavum on the L4 lamina. The Cedar elevator was used to separate any dural adhesions from surrounding bone and soft tissue prior to use of the Kerrison punch. A midline decompression was carried out using a #4 Kerrison. Bilateral lateral recess decompressions were then performed, essentially from just below the L2 pedicle to the top of the L5 pedicle. This was carried out bilaterally yielding excellent relief of the compression that was present on the neural elements. On the right side behind the L4 vertebral body, we found a significant amount of extruded and desiccated disk material. This was all removed in fragments. At the conclusion of the decompression, a Dolly elevator was used to check the lateral recesses and the foramina to ensure adequate decompression throughout the length of the laminectomy. Once this was confirmed, meticulous hemostasis was obtained, and the wound was irrigated with copious sterile saline solution. The wound was then closed in layers using interrupted sutures for the deep fascia, inverted interrupted sutures for the subcutaneous tissue and then a running subcuticular skin stitch. Sponge and needle counts were correct x two. POSTOPERATIVE CARE PLAN Ms. Barbour will remain in the hospital until she meets discharge criteria. She will then be discharged home with instructions to follow up in two weeks for wound check and examination. ESVIN
--- NOTE | 2018-02-15 15:01 | Hospitalist Progress Note ---
Subjective Progress Notes Subjective Patient seen post-op. Reviewed PMHx (HTN, breast cancer) and medications ( letrozole, amlodipine). At present she c/o pain in the surgical site, but denies any CP/SOB/N/V. Physical Exam Vital Signs Date Time Temp Pulse Resp B/P (MAP) Pulse Ox O2 Delivery O2 Flow Rate FiO2 02/15/18 14:45 71 12 99 02/15/18 09:23 98.7 143/86 (105) Room Air Intake and Output 02/16/18 06:59 Intake Total 2000 ml Output Total 150 ml Balance 1850 ml Intake IV Total 2000 ml Output Estimated Blood Loss 150 ml General Appearance: Alert, Awake Cardiovascular: Regular Rate and Rhythm Respiratory: Clear to Auscultation (anteriorly) Result Diagram: 02/14/18 1443 Assessment and Plan Problems: (1) Hypertension Status: Chronic Assessment & Plan: Will monitor her BPs and resume her amlodipine as needed. (2) Breast cancer Status: Chronic Assessment & Plan: Continue letrozole 2.5mg daily. WILLIAM WARREN MD Feb 15, 2018 15:00
--- NOTE | 2018-02-15 15:43 | RADIOLOGY IMAGING REPORT ---
FACILITY: [facility] PATIENT NAME: Analia Barbour : 1945 MR: [id number] V: [id number] EXAM DATE: ORDERING PHYSICIAN: ADELITA BROOKS TECHNOLOGIST: Location: [facility] Patient: Analia Barbour : 1945 Visit/Account:[id number] Date of Sevice: 02/15/2018 Exam: LUMBAR SPINE 1 VIEW Indication: LUMBAR 4-5 DISC HERNIATION, RAD Comparison: None available Findings: 2 intraoperative lateral lumbar spine films are submitted which show spinal instrumentation at L3-4. IMPRESSION: 1. 2 intraoperative lateral spinal films, please refer to surgeon's operative note for complete proc edural details Report Dictated By: Conner Duff at 02/15/2018 3:38 PM Report E-Signed By: Conner Duff at 02/15/2018 3:39 PM WSN:[id number]
[2018-02-15] MEDS: APAP/HYDROCODONE 325/5 TAB PO PRN ×2 (16:06→19:21)
[2018-02-15] MEDS: ceFAZolin(*) 2GM/D5W 50ML 50 ML IVPB SCH (16:53)
[2018-02-15] MEDS: amLODIPine BESYL(*) 5 MG TAB PO SCH (21:00)
[2018-02-15] MEDS: ONDANSETRON 4 MG/2 ML VIAL IVP PRN (21:09)
[2018-02-15] MEDS: LETROZOLE 2.5 MG TAB PO SCH (21:43)
[2018-02-15] MEDS: DOCUSATE SODIUM 100 MG CAP PO SCH (21:44)
[2018-02-16] VITALS: BP 141/71
[2018-02-16] MEDS: ceFAZolin(*) 2GM/D5W 50ML 50 ML IVPB SCH ×2 (01:48→09:05)
[2018-02-16 05:09] VITALS: BP 130/74
[2018-02-16] MEDS: ONDANSETRON 4 MG/2 ML VIAL IVP PRN (05:33)
[2018-02-16 05:55] LABS: PLATELET COUNT, AUTOMATED 326 K/uL (150-450)
[2018-02-16] MEDS: DIAZEPAM 5 MG TAB PO PRN ×2 (07:03→16:10)
[2018-02-16] MEDS: DOCUSATE SODIUM 100 MG CAP PO SCH ×2 (09:05→21:23)
[2018-02-16 11:15] VITALS: Ht 137.2 cm; Wt 53.3 kg
--- NOTE | 2018-02-16 11:26 | Hospitalist Progress Note ---
Subjective Progress Notes Subjective She has no concerns this morning. She had no acute events overnight. Patient Complains of: Cardiovascular: No: Chest Pain Respiratory: No: Shortness of Breath Physical Exam Vital Signs Date Time Temp Pulse Resp B/P (MAP) Pulse Ox O2 Delivery O2 Flow Rate FiO2 02/16/18 09:44 87 02/16/18 07:45 Nasal Cannula 1.0 02/16/18 05:09 99.3 88 16 130/74 (92) Intake and Output 02/17/18 06:59 Intake Total 440 ml Balance 440 ml Intake Oral 440 ml General Appearance: Alert, Awake, No Acute Distress, Afebrile Neuro: No Gross deficits Cardiovascular: Regular Rate and Rhythm Respiratory: No Respiratory Distress, Clear to Auscultation GI: Soft and Non-Tender Psych: Alert & Oriented X3, Appropriate Mood & Affect Result Diagram: 02/16/18 0513 02/16/18512 Assessment and Plan Problems: (1) Hypertension Status: Chronic Assessment & Plan: She is on chronic treatment with amlodipine. Will monitor her BPs. (2) Breast cancer Status: Chronic Assessment & Plan: Continue letrozole 2.5mg daily. Exam Sepsis Risk: No Definite Risk DILLON HERNANDEZ COMPUTER SUPPORT SPECIALIST INSTRUCTOR Feb 16, 2018 11:26
[2018-02-16 12:27] VITALS: BP 134/70
[2018-02-16 15:25] VITALS: BP 122/67
[2018-02-16 19:16] VITALS: BP 121/57
[2018-02-16] MEDS: LETROZOLE 2.5 MG TAB PO SCH (21:23)
[2018-02-16] MEDS: amLODIPine BESYL(*) 5 MG TAB PO SCH (21:35)
[2018-02-16 23:29] VITALS: BP 158/76
[2018-02-17] MEDS: DIAZEPAM 5 MG TAB PO PRN ×4 (00:10→20:16)
[2018-02-17 03:35] VITALS: BP 145/72
[2018-02-17 07:58] VITALS: BP 149/75
[2018-02-17] MEDS: DOCUSATE SODIUM 100 MG CAP PO SCH ×2 (09:07→20:15)
--- NOTE | 2018-02-17 09:07 | Hospitalist Progress Note ---
Subjective Progress Notes Subjective She has no concerns this morning. She had no acute events overnight. Patient Complains of: Cardiovascular: No: Chest Pain Respiratory: No: Shortness of Breath Physical Exam Vital Signs Date Time Temp Pulse Resp B/P (MAP) Pulse Ox O2 Delivery O2 Flow Rate FiO2 02/17/18 08:13 86 02/17/18 07:58 98.5 81 20 149/75 (99) Nasal Cannula 1.0 General Appearance: Alert, Awake, No Acute Distress, Afebrile Neuro: No Gross deficits Cardiovascular: Regular Rate and Rhythm Respiratory: No Respiratory Distress, Clear to Auscultation Psych: Alert & Oriented X3, Appropriate Mood & Affect Result Diagram: 02/16/1851202/16/18512 Assessment and Plan Problems: (1) Hypertension Status: Chronic Assessment & Plan: She is on chronic treatment with amlodipine. Will monitor her BPs. (2) Breast cancer Status: Chronic Assessment & Plan: Continue letrozole 2.5mg daily. Exam Sepsis Risk: No Definite Risk DILLON HERNANDEZ Feb 17, 2018 09:07
[2018-02-17 11:23] VITALS: BP 144/73
[2018-02-17 14:56] VITALS: BP 146/78
[2018-02-17 19:26] VITALS: BP 152/70
[2018-02-17] MEDS: amLODIPine BESYL(*) 5 MG TAB PO SCH (20:16)
[2018-02-17] MEDS: LETROZOLE 2.5 MG TAB PO SCH (20:16)
[2018-02-17] MEDS: ACETAMINOPHEN 500 MG TAB PO PRN (20:16)
[2018-02-17 23:31] VITALS: BP 141/70
[2018-02-18] MEDS: ACETAMINOPHEN 500 MG TAB PO PRN ×2 (02:09→08:34)
[2018-02-18] MEDS: DIAZEPAM 5 MG TAB PO PRN ×2 (02:09→08:37)
[2018-02-18 03:54] VITALS: BP 123/70
[2018-02-18 08:03] VITALS: BP 127/81
[2018-02-18] MEDS: DOCUSATE SODIUM 100 MG CAP PO SCH (08:25)
--- NOTE | 2018-02-18 10:38 | Hospitalist Progress Note ---
Subjective Progress Notes Subjective No cp/sob. Physical Exam Vital Signs Date Time Temp Pulse Resp B/P (MAP) Pulse Ox O2 Delivery O2 Flow Rate FiO2 02/18/18 10:11 Nasal Cannula 02/18/18 08:03 96 0.5 02/18/18 08:03 98.7 83 12 127/81 (96) General Appearance: Alert, Awake, No Acute Distress Result Diagram: 02/16/1851202/16/18512 Assessment and Plan Problems: (1) Status post laminectomy Status: Acute Assessment & Plan: No CV/pulmonary issues. See Dr. Gomez' notes for details. (2) Hypertension Status: Chronic Assessment & Plan: She is on chronic treatment with amlodipine. Will monitor her BPs. (3) Breast cancer Status: Chronic Assessment & Plan: Continue letrozole 2.5mg daily. Exam Sepsis Risk: No Definite Risk BRENANE CHOWDARY MD Feb 18, 2018 10:37
[2018-02-18 11:13] VITALS: BP 118/84
== END 2018-02-18 13:16 | DRG 520 ==
LOC: OR 00:53 → MED 14:45
PROVIDERS: ADMIT Orthopaedic Surgery; ATTEND Orthopaedic Surgery
PROC: 0SB20ZZ Excision of Lumbar Vertebral Disc, Open Approach (ICD-10-PCS; 2018-02-15)
PROC: 01NB0ZZ Release Lumbar Nerve, Open Approach (ICD-10-PCS; principal; 2018-02-15 10:39)
DX: M48.061 Spinal stenosis, lumbar region without neurogenic claudication (principal); M51.16 Intervertebral disc disorders with radiculopathy, lumbar region; Z85.3 Personal history of malignant neoplasm of breast; Z92.3 Personal history of irradiation; Z79.811 Long term (current) use of aromatase inhibitors
CPT/HCPCS: 36415; 72020; 82310; 82374; 82435; 82565; 82947; 84132; 84295; 84520; 85025; 86850; 86900; 86901; 97161; J0690; J1100; J1170; J2001; J2175; J2250; J2405; J2704; J3010

== ENCOUNTER 2018-02-18 13:16 | Inpatient (IN) | payer MEDICARE, OTHER ==
[2018-02-16 11:15] VITALS: Ht 137.2 cm; Wt 54.9 kg
[~2018-02-18] VITALS: Ht 137.2 cm; Wt 54.9 kg
[2018-02-18] MEDS ORDERED: BISACODYL 10 MG SUPP PR PRN (13:33)
[2018-02-18] MEDS ORDERED: amLODIPine BESYL(*) 5 MG TAB PO SCH ×2 (13:33→21:00)
[2018-02-18] MEDS ORDERED: APAP/HYDROCODONE 325/5 TAB PO PRN (13:33)
[2018-02-18] MEDS ORDERED: MAGNESIUM HYDROXIDE* 30ML UDCP PO PRN (13:33)
--- NOTE | 2018-02-18 14:09 | Consultant Pharmacy Review ---
Carbonator Review Medication Review Do All Mecications have a Diag: Yes Beers Criteria Medication 2015 Benzodiazapines (long acting): Diazepam (Q6 PRN) Pneumococcal Vaccine HX Pneumo Vac ([id number]): No HX Pneumo Vac (Pneumovax): No SUNSHINE ADAM Feb 18, 2018 14:09
[2018-02-18 15:40] VITALS: BP 132/70
[2018-02-18] MEDS: DIAZEPAM 5 MG TAB PO PRN (16:01)
[2018-02-18] MEDS: APAP/HYDROCODONE 325/5 TAB PO PRN (16:01)
[2018-02-18] MEDS: DOCUSATE SODIUM 100 MG CAP PO SCH (21:13)
[2018-02-18] MEDS: LETROZOLE 2.5 MG TAB PO SCH (21:14)
[2018-02-19] MEDS: DIAZEPAM 5 MG TAB PO PRN ×3 (01:52→17:29)
[2018-02-19] MEDS: ACETAMINOPHEN 500 MG TAB PO PRN ×2 (01:52→08:44)
[2018-02-19 07:37] VITALS: BP 147/75
[2018-02-19] MEDS: DOCUSATE SODIUM 100 MG CAP PO SCH ×2 (08:44→20:52)
--- NOTE | 2018-02-19 09:37 | Medical Nutrition Therapy ---
Nutrition Anthropometrics Height (Inches): 54.00 Height (Calculated Centimeters: 137.627651 Weight (Pounds): 118 Weight (Calculated Kilograms): 53.524 Anurag Nutrition Score: Adequate Anurag Nutrition Risk Score: 16 Dietary Referral Nutrition Risk Factors: Nutrition Risk Comment: Physical Findings Physical Appearance: Overweight BMI 25-29 Skin Appearance Skin Appearance: Edema Edema Location Modifier: Edema Location: Type of Edema: Degree of Edema: Gastrointestinal Symptoms GI Symtoms: Tube Present: Bowel Sounds: Recent Bowel Pattern: Stool Characteristics: Nutritional Diagnosis Nutritional Risk Acuity 3: Cancer Nutritional Risk Acuity 4: Good Appetite Past Medical History: Leukemia, HTN, breast cancer Nutrition Diagnosis: Increased Nutrient Needs Nutrition Etiology: Physiological Causes Nutrition Problem/Etiology/Sym: Increased nutrient needs related to physiological causes as evidenced by recent laminectomy surgery 02/15/18 and need for wound healing. Energy Requirement: 1100 ([id number]) Protein Requirement: 63 (53-63 (1-1.2 g/kg)) Fluid Requirement: 1590 (30 ml/kg) Diet Type: Diet as Tolerated DARIAN/REG Nutrition Intervention: Cont diet as ordered, Encourage intake Nutrition Monitoring & Eval RD Patient Assessment Time: [address] Assessment Type: RD Assessment Patient Nutrition Acuity: 3-Mild Follow Up Date: Feb 21, 2018 Nutritional Comment: 02/19 Pt transferred to ECF unit following laminectomy surgery on 02/15 for ongoing rehab. PMH of HTN and breast cancer. Currently on DARIAN with intake of 100% of two meals in ECF. Notable labs include low H/H and Na 130 (from 02/16/18). Will cont to monitor and encourage intake. -JACKIE SEQUEIRA Feb 19, 2018 09:37
[2018-02-19 17:00] VITALS: BP 141/74
[2018-02-19] MEDS: APAP/HYDROCODONE 325/5 TAB PO PRN (17:29)
[2018-02-19 20:12] VITALS: BP 132/62
[2018-02-19] MEDS: amLODIPine BESYL(*) 5 MG TAB PO SCH (20:52)
[2018-02-19] MEDS: LETROZOLE 2.5 MG TAB PO SCH (20:54)
[2018-02-20 07:30] VITALS: BP 143/72
[2018-02-20] MEDS: DIAZEPAM 5 MG TAB PO PRN ×3 (08:39→21:33)
[2018-02-20] MEDS: APAP/HYDROCODONE 325/5 TAB PO PRN ×3 (08:40→21:33)
[2018-02-20] MEDS: DOCUSATE SODIUM 100 MG CAP PO SCH ×2 (08:40→21:33)
--- NOTE | 2018-02-20 09:57 | Medical Nutrition Therapy ---
Nutrition Anthropometrics Height (Inches): 54.00 Height (Calculated Centimeters: [phone] Weight (Pounds): 118 Weight (Calculated Kilograms): 53.524 Anurag Nutrition Score: Adequate Anurag Nutrition Risk Score: 16 Dietary Referral Nutrition Risk Factors: Nutrition Risk Comment: Physical Findings Physical Appearance: Overweight BMI 25-29 Skin Appearance Skin Appearance: Edema Edema Location Modifier: Edema Location: Type of Edema: Degree of Edema: Gastrointestinal Symptoms GI Symtoms: Tube Present: Bowel Sounds: Recent Bowel Pattern: Stool Characteristics: Nutritional Diagnosis Nutritional Risk Acuity 3: Cancer Nutritional Risk Acuity 4: Good Appetite Past Medical History: Leukemia, HTN, breast cancer Nutrition Diagnosis: Increased Nutrient Needs Nutrition Etiology: Physiological Causes Nutrition Problem/Etiology/Sym: Increased nutrient needs related to physiological causes as evidenced by recent laminectomy surgery 02/15/18 and need for wound healing. Energy Requirement: 1100 ([id number]) Protein Requirement: 63 (53-63 (1-1.2 g/kg)) Fluid Requirement: 1590 (30 ml/kg) Diet Type: Diet as Tolerated DARIAN/REG Nutrition Intervention: Cont diet as ordered, Encourage intake Nutrition Monitoring & Eval Nutrition Goals: Eat 75-100% Meal RD Patient Assessment Time: [address] Assessment Type: RD Re-Assessment Patient Nutrition Acuity: 3-Mild Follow Up Date: Feb 28, 2018 Nutritional Comment: 02/19 Pt transferred to ECF unit following laminectomy surgery on 02/15 for ongoing rehab. PMH of HTN and breast cancer. Currently on DARIAN with intake of 100% of two meals in ECF. Notable labs include low H/H and Na 130 (from 02/16/18). Will cont to monitor and encourage intake. -EK 02/20 Pt continues on regular diet consuming 75% to 100% of her meals. There are no new labs or reports documented at this time. Will continue to monitor pt progress and encourage intake. -DIANN ROSE Feb 20, 2018 08:55
--- NOTE | 2018-02-20 13:06 | OT ECF NOTE ---
Type of Note: Initial Note Primary Medical Diagnosis: L32-L5 laminectomy, L4-L5 discectomy with Dr. Gomez. DOS: 02/15/18 No bending No lifting >15# No twisting Limit sitting unsupported to 15 minutes Log roll in/out of bed Occupational Therapy Evaluation Date: 02/20/18 SUBJECTIVE: Prior Hospitalization: [facility] 02/15/18 thru 02/18/18 Prior Level of Function: Modified Independent with ADLs/IADLs. Reports making primarily frozen meals. Prior Living Status: Bi-level house Community Services: No known needs Home Accessibility: Stairs with rails Tub/shower combination Equipment Owned: Front wheeled walker Toilet riser Tub/shower chair Medical Complications/Past Medical History: HTN, Right RTC, hx breast cancer. See EMR Psychosocial Support: Pt resides alone and reports a neighbor that may assist with IADLs Pain Scale (0-10): 2-3/10 OBJECTIVE: Strength: MMT: Right Left Shoulder Flexion WFL WFL Elbow Flexion WFL WFL Wrist Extension WFL WFL Loan Broker WFL WFL (5= normal, 4= good, 3= fair, 2= poor, 1= trace) ROM: Both upper extremities, WFL Sensation: Intact, no concerns Functional Transfer: Assistive Device: Standard walker Transfer Ability: SBA ADL: Upper body dressing: Assistive device: None Upper body dressing ability: Independent Lower body dressing: Assistive device: None- Good awareness of back precautions Lower body dressing ability: Independent Toileting: Assistive device: Grab bars/raised toilet seat Toileting ability: SBA Grooming/hygiene: Assistive device: Standing Grooming ability: Independent Bathing: Assistive device: None Bathing ability: N/T Standardized Assessment: Radha Index of Activities of Daily Livin/20 upon initial evaluation ( 02/20/18). ASSESSMENT: "Francia" presents to [facility] with limited mobility and pain requiring increased time for ADLs/IADLs. She will benefit from skilled OT services to improve (I) and safety for IADLs prior to discharge home alone. Pt with good recall of back precautions and needs for discharge home. Problem List/Current Limitations: Pain Short Term Goals: 1) Pt will be independent with toileting. 2) Pt will be SBA bathtub transfer. 3) Pt will be Mod (I) meal prep task. 4) Pt Radha Index of ADLs score will improve by 2 points. Jail Goals: Return home with HH services and MOW Patient Goals: "Walk better" Rehabilitation Prognosis: Good Barriers to Discharge: Pain, Motivation, Resides alone with limited support mentioned PLAN: The patient will benefit from skilled occupational therapy services 5 times per week for 2 weeks including: Ther ex ADL training Safety training Ther act IADL training Transfer training Adaptive equip training Bed mobility Energy conservation Thank you for this referral. If you have any questions, concerns, or comments about this report or plan, please contact me at . Cora Chan MS, OTR/L Occupational Therapist ESVIN
--- NOTE | 2018-02-20 15:49 | PT ECF NOTE ---
Type of Note: Initial Note Primary Medical Diagnosis: L3-L5 laminectomy, L4-L5 discectomy with Dr. Gomez. DOS: 02/15/18 Physical Therapy Evaluation Date: 02/20/2018 SUBJECTIVE: Prior Hospitalization: [facility] 02/15/18- 02/18/18 Prior Level of Function: Modified Independent with no AD Prior Living Status: Bi-level house, alone Community Services: No known needs Home Accessibility: 3 Stairs with rails, Flight of stairs to access bedroom , Tub/shower combination Equipment Owned: Front wheeled walker (x2), Toilet riser, Tub/shower chair Medical Complications/Past Medical History: HTN, Right RTC, hx breast cancer. See EMR Psychosocial Support: Pt resides alone Pain Scale (0-10): 10/10 with ambulation OBJECTIVE: Strength: Right Lower Extremity: DF: 4/5 Knee flexion: 3/5 (pain with minimal resistance) Knee extension: 3+/5 Hip flexion: 3+/5 Left Lower Extremity: DF: 4/5 Knee flexion: 3+5 Knee extension: 3+/5 Hip flexion: <3/5 ROM: Lumbar ROM limited by lumbar precautions Sensation: WNL, diminished around TKA scar on L) knee Other Neuro findings: n/a Bed Mobility: Nesha sit to supine Transfers: SBA with PUW Gait: SBA, 2x20' with PUW Stairs: NT Gait Speed (0.6m/second cannot function independently): 0.02 m/sec ASSESSMENT: PT ECF eval complete. Pt requires increased time and assistance for all functional mobility s/p lumbar laminectomies. She will benefit from skilled PT in order to increase independence with functional tasks in order to facilitate a safe d/c home alone. Problem List/Current Limitations: Pain Decreased activity doug Decreased strength Decreased ROM Short Term Goals: 1: Pt to complete bed mobility with Samuel and no use of bed rail 2: Pt to complete transfers with Samuel and least restrictive AD 3: Pt to ambulate 150' with Samuel and least restrictive AD 4: Pt to asc/desc 2x4 stairs with SBA and railing. 5: Pt to improve gait speed to 0.4 m/sec to indicate an improvement in function Assisted Goals: Pt to d/c home at Samuel level with least restrictive AD Patient Goals: Discharge home Rehabilitation Prognosis: Good Barriers for Discharge: High level of independence required to d/c home PLAN: The patient will benefit from skilled physical therapy services 5 times per week for 2 weeks including: Therapeutic Exercise Therapeutic Activities Transfer Training Gait Training Stair Training Manual Therapy ADL's Safety Training Neuromuscular Re-educ. Pt/Caregiver Training Bed Mobility Thank you for this referral. If you have any questions, concerns, or comments about this report or plan, please contact me at . Eunice Painting, PT, DPT [facility]
[2018-02-20 16:45] VITALS: BP 125/79
[2018-02-20] MEDS: LETROZOLE 2.5 MG TAB PO SCH (21:34)
[2018-02-20] MEDS: amLODIPine BESYL(*) 5 MG TAB PO SCH (21:36)
[2018-02-20 21:37] VITALS: BP 144/81
[2018-02-21] MEDS: DIAZEPAM 5 MG TAB PO PRN ×3 (03:30→16:31)
[2018-02-21] MEDS: APAP/HYDROCODONE 325/5 TAB PO PRN ×3 (03:32→18:07)
[2018-02-21 08:07] VITALS: BP 144/69
[2018-02-21] MEDS: DOCUSATE SODIUM 100 MG CAP PO SCH ×2 (09:10→20:40)
[2018-02-21 16:00] VITALS: BP 139/79
[2018-02-21] MEDS: LETROZOLE 2.5 MG TAB PO SCH (20:41)
[2018-02-21] MEDS: amLODIPine BESYL(*) 5 MG TAB PO SCH (20:41)
[2018-02-22] MEDS: APAP/HYDROCODONE 325/5 TAB PO PRN ×4 (00:41→20:37)
[2018-02-22 08:15] VITALS: BP 138/72
[2018-02-22] MEDS: DOCUSATE SODIUM 100 MG CAP PO SCH ×2 (08:59→20:37)
[2018-02-22] MEDS: DIAZEPAM 5 MG TAB PO PRN (08:59)
--- NOTE | 2018-02-22 14:46 | Hospitalist Progress Note ---
Physical Exam Vital Signs Date Time Temp Pulse Resp B/P (MAP) Pulse Ox O2 Delivery O2 Flow Rate FiO2 02/22/18 09:36 94 Room Air 02/22/18 08:15 97.0 74 16 138/72 (94) 02/18/18 17:49 0.5 Intake and Output 02/23/18 07:00 Intake Total 1180 ml Balance 1180 ml Intake Oral 1180 ml # Voids 2 Assessment and Plan Problems: (1) Status post laminectomy Status: Acute Assessment & Plan: Transferred to [facility] for ongoing rehabilitation. (2) Hypertension Status: Chronic Assessment & Plan: She is on chronic treatment with amlodipine. Will monitor her BPs. (3) Breast cancer Status: Chronic Assessment & Plan: Continue letrozole 2.5mg daily Time Spent on Plan of Care: < 30 min SUNSHINE WARREN MD Feb 22, 2018 14:45
--- NOTE | 2018-02-22 15:17 | Hospitalist Progress Note ---
Subjective Progress Notes Subjective The patient states she is constipated. Took MOM at noon today. Physical Exam Vital Signs Date Time Temp Pulse Resp B/P (MAP) Pulse Ox O2 Delivery O2 Flow Rate FiO2 02/22/18 09:36 94 Room Air 02/22/18 08:15 97.0 74 16 138/72 (94) 02/18/18 17:49 0.5 Intake and Output 02/23/18 07:00 Intake Total 1180 ml Balance 1180 ml Intake Oral 1180 ml # Voids 2 General Appearance: Alert, Awake, No Acute Distress, Afebrile Neuro: No Gross deficits Cardiovascular: Regular Rate and Rhythm GI: Soft and Non-Tender Extremities: Warm, Perfused Psych: Appropriate Mood & Affect Assessment and Plan Problems: (1) Status post laminectomy Status: Acute Assessment & Plan: Transferred to [facility] for ongoing rehabilitation. (2) Hypertension Status: Chronic Assessment & Plan: She is on chronic treatment with amlodipine. Will continue to monitor her BPs. (3) Breast cancer Status: Chronic Assessment & Plan: Continue letrozole 2.5mg daily (4) Constipation Status: Acute Assessment & Plan: Constipation protocol ordered. Time Spent on Plan of Care: < 30 min SUNSHINE WARREN MD Feb 22, 2018 15:17
[2018-02-22 18:30] VITALS: BP 141/76
[2018-02-22] MEDS: LETROZOLE 2.5 MG TAB PO SCH (20:37)
[2018-02-22] MEDS: amLODIPine BESYL(*) 5 MG TAB PO SCH (20:37)
[2018-02-23] MEDS: APAP/HYDROCODONE 325/5 TAB PO PRN ×4 (02:54→20:28)
[2018-02-23 07:50] VITALS: BP 133/62
[2018-02-23] MEDS: DOCUSATE SODIUM 100 MG CAP PO SCH ×2 (08:46→20:28)
[2018-02-23] MEDS: POLYETHYLENE GLYCOL 17 GM PKT PO PRN (08:46)
[2018-02-23 15:29] VITALS: BP 124/71
[2018-02-23] MEDS: CALCIUM CARBONATE 500 MG CHEW PO PRN ×3 (15:37→20:57)
[2018-02-23] MEDS: LETROZOLE 2.5 MG TAB PO SCH (20:27)
[2018-02-23] MEDS: amLODIPine BESYL(*) 5 MG TAB PO SCH (20:27)
[2018-02-24] MEDS: APAP/HYDROCODONE 325/5 TAB PO PRN ×3 (02:53→17:08)
[2018-02-24 07:30] VITALS: BP 144/65
[2018-02-24] MEDS: POLYETHYLENE GLYCOL 17 GM PKT PO PRN (09:00)
[2018-02-24] MEDS: DOCUSATE SODIUM 100 MG CAP PO SCH ×2 (09:00→20:16)
--- NOTE | 2018-02-24 12:32 | OT ECF NOTE ---
Type of Note: Discharge Note Primary Medical Diagnosis: L32-L5 laminectomy, L4-L5 discectomy with Dr. Gomez. DOS: 02/15/18 No bending No lifting >15# No twisting Limit sitting unsupported to 15 minutes Log roll in/out of bed Occupational Therapy Evaluation Date: 02/20/18 SUBJECTIVE: Prior Hospitalization: [facility] 02/15/18 thru 02/18/18 Prior Level of Function: Modified Independent with ADLs/IADLs. Reports making primarily frozen meals. Prior Living Status: Bi-level house Community Services: [facility] and [facility] upon d/c. Home Accessibility: Stairs with rails Tub/shower combination Equipment Owned: Front wheeled walker Toilet riser Tub/shower chair Medical Complications/Past Medical History: HTN, Right RTC, hx breast cancer. See EMR Psychosocial Support: Pt resides alone and reports a neighbor that may assist with IADLs Pain Scale (0-10): 2-3/10 OBJECTIVE: Strength: MMT: Right Left Shoulder Flexion WFL WFL Elbow Flexion WFL WFL Wrist Extension WFL WFL Bedspread Cutter Hand WFL WFL (5= normal, 4= good, 3= fair, 2= poor, 1= trace) ROM: Both upper extremities, WFL Sensation: Intact, no concerns Functional Transfer: Assistive Device: Standard walker Transfer Ability: Mod I ADL: Upper body dressing: Assistive device: None Upper body dressing ability: Independent Lower body dressing: Assistive device: Research Hydrologist -Good awareness of back precautions Lower body dressing ability: Mod I Independent Toileting: Assistive device: Grab bars/raised toilet seat Toileting ability: Mod I Grooming/hygiene: Assistive device: Standing Grooming ability: Independent Bathing: Assistive device: Bath chair, hand held shower Bathing ability: Min A Standardized Assessment: Radha Index of Activities of Daily Livin/20 upon initial evaluation ( 02/20/18). Pt. scored a 17/20 on this index requiring assistance for bathing/ showering and stairs. ASSESSMENT: "Francia" presents to [facility] with limited mobility and pain requiring increased time for ADLs/IADLs. She will benefit from skilled OT services to improve (I) and safety for IADLs prior to discharge home alone. Pt with good recall of back precautions and needs for discharge home. Problem List/Current Limitations: Pain Short Term Goals: 1) Pt will be independent with toileting. Goal met. 2) Pt will be SBA bathtub transfer. Pt. requires Min A, pt. will have assistance from HH care. 3) Pt will be Mod (I) meal prep task. Goal met. 4) Pt Radha Index of ADLs score will improve by 2 points. Pt. has met OT goals. PT to continue to address ascending/descending stairs. Wire Coiler Goals: Return home with HH services and MOW Patient Goals: "Walk better" Rehabilitation Prognosis: Good Barriers to Discharge: Pain, Motivation, Resides alone with limited support mentioned PLAN: The patient will discharge to home with HH care and MOW when cleared medically and by PT services. Thank you for this referral. If you have any questions, concerns, or comments about this report or plan, please contact me at . Desiree Salgado, OTR/L Occupational Therapist [facility]
[2018-02-24 15:55] VITALS: BP 127/62
[2018-02-24] MEDS: CALCIUM CARBONATE 500 MG CHEW PO PRN (19:13)
[2018-02-24] MEDS: amLODIPine BESYL(*) 5 MG TAB PO SCH (20:16)
[2018-02-24] MEDS: LETROZOLE 2.5 MG TAB PO SCH (20:16)
[2018-02-25] MEDS: APAP/HYDROCODONE 325/5 TAB PO PRN ×2 (00:30→09:15)
[2018-02-25 07:45] VITALS: BP 149/87
[2018-02-25] MEDS: DOCUSATE SODIUM 100 MG CAP PO SCH ×2 (09:15→20:36)
[2018-02-25] MEDS: CYCLOBENZAPRINE HCL 10 MG TAB PO PRN (16:19)
[2018-02-25 16:45] VITALS: BP 145/84
[2018-02-25] MEDS: LETROZOLE 2.5 MG TAB PO SCH (20:34)
[2018-02-25 20:35] VITALS: BP 158/85
[2018-02-25] MEDS: amLODIPine BESYL(*) 5 MG TAB PO SCH (20:36)
[2018-02-26] MEDS: CYCLOBENZAPRINE HCL 10 MG TAB PO PRN ×2 (07:37→20:28)
[2018-02-26 08:51] VITALS: BP 141/83
[2018-02-26] MEDS: DOCUSATE SODIUM 100 MG CAP PO SCH ×2 (09:10→20:26)
[2018-02-26] MEDS ORDERED: SALINE 0.65% NAS SPR 44 ML BTL ENA PRN ×2 (10:00→10:55)
[2018-02-26] MEDS ORDERED: PATIENT'S OWN MED OP PRN (10:00)
[2018-02-26 16:00] VITALS: BP 154/81
[2018-02-26 20:15] VITALS: BP 144/86
[2018-02-26] MEDS: amLODIPine BESYL(*) 5 MG TAB PO SCH (20:26)
[2018-02-26] MEDS: LETROZOLE 2.5 MG TAB PO SCH (20:27)
[2018-02-27 08:01] VITALS: BP 145/82
[2018-02-27] MEDS: DOCUSATE SODIUM 100 MG CAP PO SCH ×2 (08:39→20:36)
--- NOTE | 2018-02-27 10:48 | Medical Nutrition Therapy ---
Nutrition Anthropometrics Height (Inches): 54.00 Height (Calculated Centimeters: 137.209256 Weight (Pounds): 121 Weight (Calculated Kilograms): 54.885 Anurag Nutrition Score: Adequate Anurag Nutrition Risk Score: 18 Dietary Referral Nutrition Risk Factors: Nutrition Risk Comment: Physical Findings Physical Appearance: Overweight BMI 25-29 Skin Appearance Skin Appearance: Edema Edema Location Modifier: Both Edema Location: Lower Extremity Type of Edema: Degree of Edema: Gastrointestinal Symptoms GI Symtoms: Constipation Tube Present: Bowel Sounds: Recent Bowel Pattern: Stool Characteristics: Nutritional Diagnosis Nutritional Risk Acuity 3: Cancer Nutritional Risk Acuity 4: Good Appetite Past Medical History: Leukemia, HTN, breast cancer Nutrition Diagnosis: Increased Nutrient Needs Nutrition Etiology: Physiological Causes Nutrition Problem/Etiology/Sym: Increased nutrient needs related to physiological causes as evidenced by recent laminectomy surgery 02/15/18 and need for wound healing. Energy Requirement: 1100 ([id number]) Protein Requirement: 63 (53-63 (1-1.2 g/kg)) Fluid Requirement: 1590 (30 ml/kg) Diet Type: Diet as Tolerated DARIAN/REG Nutrition Intervention: Cont diet as ordered, Encourage intake Food Likes: likes half portions Nutrition Monitoring & Eval Nutrition Goals: Eat 75-100% Meal RD Patient Assessment Time: [address] Assessment Type: RD Re-Assessment Patient Nutrition Acuity: 3-Mild Follow Up Date: Mar 07, 2018 Nutritional Comment: 02/19 Pt transferred to ECF unit following laminectomy surgery on 02/15 for ongoing rehab. PMH of HTN and breast cancer. Currently on DARIAN with intake of 100% of two meals in ECF. Notable labs include low H/H and Na 130 (from 02/16/18). Will cont to monitor and encourage intake. -EK 02/20 Pt continues on regular diet consuming 75% to 100% of her meals. There are no new labs or reports documented at this time. Will continue to monitor pt progress and encourage intake. -MT 02/27 Pt continues on regular diet with 100% oral intake, consuming small portions. No new labs at this time. Pt is doing well she is working with both PT and OT. Pt is experiencing some constipation. Will continue to monitor pt progress and encourage intake -DIANN ROSE Feb 27, 2018 09:23
[2018-02-27 15:54] VITALS: BP 155/88
[2018-02-27 20:33] VITALS: BP 146/58
[2018-02-27] MEDS: amLODIPine BESYL(*) 5 MG TAB PO SCH (20:36)
[2018-02-27] MEDS: LETROZOLE 2.5 MG TAB PO SCH (20:36)
[2018-02-27] MEDS: CALCIUM CARBONATE 500 MG CHEW PO PRN (20:39)
[2018-02-28 07:35] VITALS: BP 137/70
[2018-02-28] MEDS: DOCUSATE SODIUM 100 MG CAP PO SCH ×2 (08:40→20:27)
[2018-02-28 17:02] VITALS: BP 135/72
[2018-02-28] MEDS: LETROZOLE 2.5 MG TAB PO SCH (20:27)
[2018-02-28] MEDS: amLODIPine BESYL(*) 5 MG TAB PO SCH (20:27)
[2018-02-28] MEDS: CALCIUM CARBONATE 500 MG CHEW PO PRN (20:27)
[2018-02-28 20:30] VITALS: BP 160/93
[2018-03-01 08:00] VITALS: BP 164/84
[2018-03-01] MEDS: DOCUSATE SODIUM 100 MG CAP PO SCH ×2 (08:48→20:38)
--- NOTE | 2018-03-01 13:55 | Hospitalist Progress Note ---
Subjective Progress Notes Subjective The patient states her constipation has resolved. Physical Exam Vital Signs Date Time Temp Pulse Resp B/P (MAP) Pulse Ox O2 Delivery O2 Flow Rate FiO2 03/01/18 13:00 97 Room Air 03/01/18 08:00 97.8 80 16 164/84 (110) 02/25/18 16:45 91.0 Intake and Output 03/02/18 06:59 Intake Total 840 ml Balance 840 ml Intake Oral 840 ml # Voids 1 General Appearance: Alert, Awake, No Acute Distress, Afebrile Neuro: No Gross deficits Cardiovascular: Regular Rate and Rhythm Respiratory: Clear to Auscultation GI: Soft and Non-Tender Extremities: Warm, Perfused, Other (Tender area over R inner foot. Feels like a small 2-3mm "knot" in a vein. No significant redness or swelling. ) Psych: Alert & Oriented X3, Appropriate Mood & Affect Assessment and Plan Problems: (1) Status post laminectomy Status: Acute Assessment & Plan: Transferred to [facility] for ongoing rehabilitation. See Dr. Gomez's notes from her inpatient stay for details. (2) Hypertension Status: Chronic Assessment & Plan: She is on chronic treatment with amlodipine. She has occasional high readings. She will follow up with her PCP in [place] after discharge. (3) Breast cancer Status: Chronic Assessment & Plan: Continue letrozole 2.5mg daily (4) Constipation Status: Acute Assessment & Plan: Resolved. Time Spent on Plan of Care: < 30 min SUNSHINE WARREN MD Mar 01, 2018 13:55
[2018-03-01 16:00] VITALS: BP 147/88
[2018-03-01] MEDS: LETROZOLE 2.5 MG TAB PO SCH (20:37)
[2018-03-01] MEDS: amLODIPine BESYL(*) 5 MG TAB PO SCH (20:37)
[2018-03-02 07:35] VITALS: BP 137/86
[2018-03-02] MEDS: DOCUSATE SODIUM 100 MG CAP PO SCH ×2 (08:40→21:00)
[2018-03-02] MEDS: POLYETHYLENE GLYCOL 17 GM PKT PO PRN (08:40)
[2018-03-02 16:00] VITALS: BP 139/87
[2018-03-02] MEDS: LETROZOLE 2.5 MG TAB PO SCH (21:05)
[2018-03-02 21:08] VITALS: BP 143/94
[2018-03-02] MEDS: amLODIPine BESYL(*) 5 MG TAB PO SCH (21:08)
[2018-03-03 08:30] VITALS: BP 129/70
[2018-03-03] MEDS: DOCUSATE SODIUM 100 MG CAP PO SCH ×2 (08:54→21:05)
--- NOTE | 2018-03-03 14:12 | PT ECF NOTE ---
Type of Note: Discharge Summary Primary Medical Diagnosis: L3-L5 laminectomy, L4-L5 discectomy with Dr. Gomez. DOS: 02/15/18 Physical Therapy Evaluation Date: 03/03/2018 SUBJECTIVE: [facility]18[facility]18 Prior Level of Function: Modified Independent with no AD Prior Living Status: Bi-level house, alone Community Services: No known needs Home Accessibility: 3 Stairs with rails, Flight of stairs to access bedroom , Tub/shower combination Equipment Owned: Front wheeled walker (x2), Toilet riser, Tub/shower chair Medical Complications/Past Medical History: HTN, Right RTC, hx breast cancer. See EMR Psychosocial Support: Pt resides alone Pain Scale (0-10): 02/19 OBJECTIVE: Strength: Right Lower Extremity: DF: 4/5 Knee flexion: 4/5 Knee extension: 4/5 Hip flexion: 3+/5 Left Lower Extremity: DF: 4/5 Knee flexion: 4/5 Knee extension: 4/5 Hip flexion: <3/5 ROM: Lumbar ROM limited by lumbar precautions Sensation: WNL, diminished around TKA scar on L) knee Other Neuro findings: n/a Bed Mobility: Alexis Transfers: Alexis with RW Gait: Alexis x175 with RW Stairs: Alexis x flight of stairs Gait Speed (0.6m/second cannot function independently): 0.6 m/sec ASSESSMENT: Pt has met all PT goals and is safe to d/c home from a mobility stand point when medically appropriate. She is Alexis for all functional mobility with use of RW. It was recommended that the pt utilize [facility] services at d/c, but the patient has declined at this time. She plans to pursue OP PT as needed after return home. Problem List/Current Limitations: Pain Decreased activity doug Decreased strength Decreased ROM Short Term Goals: (goals met) 1: Pt to complete bed mobility with Alexis and no use of bed rail 2: Pt to complete transfers with Alexis and least restrictive AD 3: Pt to ambulate 150' with Alexis and least restrictive AD 4: Pt to asc/desc 2x4 stairs with SBA and railing. 5: Pt to improve gait speed to 0.4 m/sec to indicate an improvement in function [facility] Goals: Pt to d/c home at Alexis level with least restrictive AD (met ) Patient Goals: Discharge home (met) PLAN: The patient will d/c home alone with use of RW. She will pursue outpatient PT services as needed upon d/c. Thank you for this referral. If you have any questions, concerns, or comments about this report or plan, please contact me at . [employer], PT, DPT [facility]
[2018-03-03 15:00] VITALS: BP 136/65
[2018-03-03] MEDS: CALCIUM CARBONATE 500 MG CHEW PO PRN (17:54)
[2018-03-03] MEDS: amLODIPine BESYL(*) 5 MG TAB PO SCH (21:00)
[2018-03-03] MEDS: ACETAMINOPHEN 500 MG TAB PO PRN (21:04)
[2018-03-03] MEDS: LETROZOLE 2.5 MG TAB PO SCH (21:05)
[2018-03-03 21:52] VITALS: BP 121/62
[2018-03-04 08:00] VITALS: BP 158/76
[2018-03-04] MEDS: DOCUSATE SODIUM 100 MG CAP PO SCH ×2 (09:00→20:30)
[2018-03-04] MEDS: CALCIUM CARBONATE 500 MG CHEW PO PRN (13:00)
[2018-03-04 17:00] VITALS: BP 105/67
[2018-03-04 20:28] VITALS: BP 174/82
[2018-03-04] MEDS: amLODIPine BESYL(*) 5 MG TAB PO SCH (20:30)
[2018-03-04] MEDS: LETROZOLE 2.5 MG TAB PO SCH (20:30)
[2018-03-04] MEDS: ACETAMINOPHEN 500 MG TAB PO PRN (20:30)
[2018-03-05 07:55] VITALS: BP 135/81
[2018-03-05] MEDS: DOCUSATE SODIUM 100 MG CAP PO SCH (08:37)
[2018-03-05] MEDS: APAP/HYDROCODONE 325/5 TAB PO PRN (09:42)
--- NOTE | 2018-03-20 12:30 | HISTORY AND PHYSICAL ---
DATE OF ADMISSION: February 18, 2018 HISTORY OF PRESENT ILLNESS Patient is a 72-year-old female who underwent a lumbar laminectomy on February 15, 2018. She had a difficult time with physical therapy immediately postoperatively and had no real assistance at home so she was found to be a candidate for admission to the [facility]. Her surgery was uncomplicated. She just was having ongoing weakness and difficulty with ambulation postoperatively. PAST MEDICAL HISTORY * Hypertension. * Cancer. PAST SURGICAL HISTORY * Rotator cuff repair. * Left knee surgery. * Carpal tunnel surgery. * Right bunion surgery. ALLERGIES No known drug allergies. CURRENT MEDICATIONS * Amlodipine. SOCIAL HISTORY She denies any use of tobacco, alcohol or street drugs. PHYSICAL EXAMINATION Well-appearing, well-developed female in no acute distress. Strength in lower extremities 5/5. Incision and dressing were clean, dry and intact. Sensation was intact in all lower extremity dermatomes. ASSESSMENT AND PLAN Patient again had postoperative weakness status post lumbar laminectomy and was admitted to the Extended Care Facility. [facility]
--- NOTE | 2018-03-21 18:44 | DISCHARGE SUMMARY ---
DATE OF ADMISSION: February 18, 2018 DATE OF DISCHARGE: March 05, 2018 ADMISSION DIAGNOSIS Postoperative weakness. DISCHARGE DIAGNOSIS Postoperative weakness. SUMMARY Ms. Barbour is a 72-year-old female who underwent spinal stenosis decompression on February 15, 2018. Postoperatively, she was found to be weak and have difficulty with ambulation. She was, therefore, admitted to the extended care facility for further physical therapy and recovery. She had an uncomplicated inpatient stay and was discharged home on March 05, 2018, in improved condition. [facility]
== END 2018-03-05 12:15 | disposition home or self-care (01) | DRG 561 ==
LOC: ECF 13:16
PROVIDERS: ADMIT Orthopaedic Surgery; ATTEND Orthopaedic Surgery
DX: Z47.89 Encounter for other orthopedic aftercare (principal); R53.1 Weakness; K59.00 Constipation, unspecified; I10 Essential (primary) hypertension; Z98.1 Arthrodesis status; C50.012 Malignant neoplasm of nipple and areola, left female breast
CPT/HCPCS: 97165